=== PATIENT | female | born 1975 | race Caucasian/White ===

== ENCOUNTER 2021-06-05 10:29 | Outpatient (CLI) | payer MEDICARE, SELFPAY ==
--- NOTE | ~2021-06-05 | XR_ITS ---
XR chest 2V DATE: 06/05/2021 10:53 INDICATION: Shortness of breath TECHNIQUE: 2 views COMPARISON: None FINDINGS: Status post anterior surgical fusion at cervical-thoracic area. Normal heart size. No hilar or mediastinal enlargement. No pulmonary infiltrate or consolidation, pleural effusion or pulmonary vascular congestion or pneumo thorax. There is mild levoscoliosis of the thoracic spine. There is degenerative spurring of the thoracic spi ne. IMPRESSION: No active cardiopulmonary disease Reviewed, dictated and finalized at location A.
[2021-06-05 11:51] LABS: Alanine Aminotransferase 56 U/L (4-35); Albumin Level 4.3 g/dL (3.5-5.1); Alkaline Phosphatase 153 U/L (38-126); Anion Gap 2 mmol/L (8-16); Aspartate Amino Transferase 41 U/L (14-36); Bilirubin,Total 0.4 mg/dL (0.2-1.3); Blood Urea Nitrogen 8 mg/dL (7-17); Calcium 9.2 mg/dL (8.4-10.2); Carbon Dioxide 31 mmol/L (22-30); Chloride 102 mmol/L (98-107); Cholesterol 184 mg/dL (0-200); Estimated Glomerular Filt Rate > 60; Glucose 319 mg/dL (65-110); HDL Direct 47 mg/dL; Sodium 135 mmol/L (137-145); Triglycerides 216 mg/dL (<150)
[2021-06-05 11:52] LABS: Hemoglobin A1C 10.9 % (<5.7)
[2021-06-05 11:57] LABS: Basophils Absolute Auto 0.1 K/mm3 (0.0-0.1); Basophils Percent Auto 0.8 % (0.2-1.2); Eosinophils Absolute Auto 0.4 K/mm3 (0-0.3); Eosinophils Percent Auto 4.4 % (0-4.4); Hematocrit 41.7 % (37.0-47.0); Hemoglobin 13.8 g/dL (12.0-15.0); Immature Granulocyte Absolute 0.05 K/mm3 (0.00-0.031); Immature Granulocyte Percent A 0.6 % (0-0.5); Lymphocytes Absolute Auto 2.32 K/mm3 (0.9-3.2); Lymphocytes Percent Auto 28.2 % (18.3-44.2); Mean Corpuscular HGB Conc 33.1 g/dl (32-36); Mean Corpuscular Hemoglobin 28.9 pg (26-34); Mean Corpuscular Volume 87.2 fl (80-100); Mean Platelet Volume 10.7 fl (7.4-10.4); Monocytes Absolute Auto 0.5 K/mm3 (0.1-0.6); Monocytes Percent Auto 5.5 % (2.6-8.5); Neutrophils Percent Auto 60.5 % (45.5-73.1); Platelet Count Result 180 k/mm3 (150-375); Red Blood Count 4.78 M/mm3 (4.2-5.4); Red Cell Distribution Width 14.3 % (11.5-14.5); White Blood Count 8.2 K/mm3 (4.5-10.0)
[2021-06-05 12:02] LABS: LDL Cholesterol Direct 110 mg/dL
[2021-06-05 12:20] LABS: Thyroid Stimulating Hormone 0.862 uIU/mL (0.465-4.680)
[2021-06-05 12:23] LABS: Vitamin D 25 Hydroxy 27.8 ng/mL
== END 2021-06-05 10:30 | disposition home or self-care (01) ==
PROVIDERS: PCP Internal Medicine; Visit Provider Clinical Nurse Specialist
DX: R06.02 Shortness of breath (principal); E11.9 Type 2 diabetes mellitus without complications; R53.83 Other fatigue; E55.9 Vitamin D deficiency, unspecified
CPT/HCPCS: 36415; 71046; 80053; 80061; 82306; 83036; 84443; 85025

== ENCOUNTER 2021-08-27 10:08 | Emergency (ER) | payer MEDICARE, SELFPAY ==
[2021-08-27 10:26] VITALS: BP 125/77; PULSE 102; RESP 20; TEMP 36.6; O2SAT 100
[2021-08-27 10:38] VITALS: BP 108/70; PULSE 112; RESP 16; TEMP 37.2; O2SAT 100
--- NOTE | 2021-08-27 11:22 | ED.URI ---
HPI - URI/Sore Throat General Chief Complaint: Upper Respiratory Infection Stated Complaint: Congestion/ Sore Throat Time Seen by Provider: 08/27/21 11:30 Source: patient, RN notes reviewed and old records reviewed Mode of arrival: ambulatory Limitations: no limitations History of Present Illness HPI Narrative: 46 year old female who presents to [facility] with complaints of cough, headache, sore throat feels exhausted and has been feeling hot and cold for the past 3 days. Patient reports that she has noted some green tinged sputum and also has noted occasional wheezes with no acute dyspnea she continues to use tobacco daily but has decreased usage since having present symptoms. Patient reports that she has had COVID and flu vaccinations, She states that she has been taking Mucinex day and night for her symptoms. MD elicited complaint: cough, sore throat, rhinorrhea, nasal congestion and other (feeling hot and cold) Related Data Home Medications Medication Instructions Recorded Confirmed alendronate 70 mg tablet 70 mg PO WEEKLY 06/03/21 08/27/21 calcium carbonate 600 mg calcium 600 mg PO DAILY 06/03/21 08/27/21 (1,500 mg) tablet cholecalciferol (vitamin D3) 25 25 mcg PO DAILY 06/03/21 08/27/21 mcg (1,000 unit) capsule duloxetine 60 mg capsule,delayed 60 mg PO BID 06/03/21 08/27/21 release gabapentin 300 mg capsule 300 mg PO BID 06/03/21 08/27/21 hydrocodone 10 mg-acetaminophen 0.5 tablet PO QHS PRN tablet 06/03/21 08/27/21 325 mg tablet omeprazole 40 mg capsule,delayed 40 mg PO DAILY 06/03/21 08/27/21 release pregabalin 75 mg capsule 75 mg PO BID 06/03/21 08/27/21 Allergies Allergy/AdvReac Type Severity Reaction Status Date / Time No Known Allergies Allergy Verified 08/27/21 10:58 Review of Systems Review of Systems: CONSTITUTIONAL: No known fever, chills, or sweats.states feels hot and cold EYES: Denies visual changes, redness, or discharge. ENT: positive for rhinorrhea, congestion, sore throat, no otalgia. CARDIOVASCULAR: Denies chest pain, palpitations, or edema. RESPIRATORY:Positive for cough denies any acute dyspnea GASTROINTESTINAL: Denies abdominal pain, nausea, vomiting, or diarrhea. GENITOURINARY: Denies dysuria or hematuria. SKIN: Denies rash or itching. MUSCULOSKELETAL:Chronic neck and back pain, joint pain, generalized aching NEUROLOGIC: Positive for headache,no numbness, or weakness, states fatigue. PSYCHIATRIC: Positive for history of anxiety or depression. All systems reviewed & are unremarkable except as noted in HPI and below PMFSH Past Medical History Medical History Cervical disc disease Cirrhosis of liver Diabetes Osteopenia Parkinson disease Surgical History Surgical History H/O lumbar discectomy H/O: hysterectomy Family History Family History Father Diabetes mellitus Idiopathic pulmonary fibrosis Mother Depression Anxiety Parkinsons disease Grandparent Heart disease Parkinsons disease Diabetes mellitus Sibling Cerebrovascular accident Brother Social History Social History (Updated 08/28/21 @ 16:13 by Alaina Ledesma NP) Social History: Caffeine-4cups daily Smoking packs per day: 0.5 Smoking cigarettes per day: 10.0 Years smoked: 30 Smoking pack-years: 15.00 Smoking status: Current every day smoker Tobacco type: cigarettes Second hand tobacco smoke exposure: Yes Alcohol intake: unknown Substance use: current Substance use type: opiates Last use: pain control Living arrangements: with family Gender identity (if verbalized by the patient): Female Comments At time of signature, agree with nursing past medical, surgical, social and family history. There is no relevant family history pertinent to the presenting complaint Ex
== END 2021-08-27 11:50 | disposition home or self-care (01) ==
PROVIDERS: Emergency Provider Registered Nurse; PCP Internal Medicine
DX: J06.9 Acute upper respiratory infection, unspecified (principal); J40 Bronchitis, not specified as acute or chronic; Z20.822 Contact with and (suspected) exposure to COVID-19; F17.210 Nicotine dependence, cigarettes, uncomplicated; K74.60 Unspecified cirrhosis of liver; E11.9 Type 2 diabetes mellitus without complications; M81.0 Age-related osteoporosis without current pathological fracture; G20 Parkinson's disease
CPT/HCPCS: 87081; 87426; 87880; 99213; C9803; G0463

== ENCOUNTER 2021-10-01 10:00 | Outpatient (CLI) | payer MEDICARE, SELFPAY ==
[2021-10-01 11:22] LABS: Hemoglobin A1C 11.8 % (<5.7)
[2021-10-01 12:32] LABS: Folic Acid > 20.0 ng/mL (2.76->20)
[2021-10-01 12:42] LABS: Creatinine Urine 186.9 mg/dL
[2021-10-01 13:16] LABS: Microalbumin Urine Random 495.3 mg/L (0-16.7)
== END 2021-10-01 10:01 | disposition home or self-care (01) ==
PROVIDERS: PCP Internal Medicine; Visit Provider Internal Medicine
DX: E11.69 Type 2 diabetes mellitus with other specified complication (principal)
CPT/HCPCS: 36415; 82043; 82607; 82746; 83036

== ENCOUNTER 2021-10-21 10:39 | Outpatient (CLI) | payer MEDICARE, SELFPAY ==
--- NOTE | ~2021-10-21 | XR_ITS ---
EXAMINATION: XR chest 2V 10/21/2021 10:49 INDICATION: Dyspnea PROCEDURE: 2 view chest COMPARISON: 06/05/2021 FINDINGS: The lungs are clear. The cardiomediastinal silhouette is within normal limits. There are no pleural effusions. There is no pneumothorax suspected. IMPRESSION: 1: NO ACUTE CARDIOPULMONARY DISEASE. Reviewed, dictated and finalized at location B. E CARE CERTIFIED NURSING ASSISTANT
== END 2021-10-21 10:40 | disposition home or self-care (01) ==
LOC: ANHIMG 10:40
PROVIDERS: PCP Internal Medicine; Visit Provider Internal Medicine
DX: R06.00 Dyspnea, unspecified (principal)
CPT/HCPCS: 71046

== ENCOUNTER 2021-11-01 09:15 | Outpatient (CLI) | payer MEDICARE, SELFPAY ==
--- NOTE | ~2021-11-01 | NM_ITS ---
EXAMINATION: NM elisa stress w perfusion DATE: 11/01/2021 12:43 INDICATION: Dyspnea on exertion. TECHNIQUE: Rest images were obtained following intravenous administration of 9 mCi Tc99m tetrofosmin (Myoview). The patient was infused intravenously with Lexiscan (regadenoson). Then, 26 mCi Tc99m tetr ofosmin (Myoview) was administered intravenously, and stress images were obtained. Data was reconstru cted into short axis and horizontal and vertical long axis SPECT images. Gated SPECT images were also obtained. COMPARISON: None. FINDINGS: Increased activity below the diaphragm decreases sensitivity and specificity in the inferio r wall. There is no definite reversible or fixed perfusion abnormality to suggest ischemia or infarct ion. There is no segmental wall motion abnormality. Left ventricular ejection fraction measures 54% . IMPRESSION: 1. No definite ischemia or infarct. 2. Normal left ventricular ejection fraction measuring 54%. Reviewed, dictated and finalized at location A. ING ACTUARY
--- NOTE | 2021-11-01 11:28 | EST_ITS ---
Patient Info Name: Yahaira Carrera Age: 46 years : 1975 Gender: Female Ht: 67 in Wt: 193 lbs BSA: 2.06 m2 HR: 78 bpm BP: 131 / 84 mmHg Heart Rhythm: Sinus Rhythm Exam Date: 11/01/2021 11:34 AM Exam Location: [facility] Stress Patient Status: Outpatient Admit Date: 11/01/2021 Staff Ordering Physician: Yoni Darby DO Attending Provider: Yoni Darby DO Exercise Technologist: Sunni Jones CT Exercise Physician: Kwame Salazar DO Exam Type: CA stress elisa w NM Study Info Indications R06.00 - Dyspnea, unspecified A regadenoson stress test was performed. Summary 1. 1. Negative lexiscan stress test for ischemic ST changes by ECG crieria. 2. 2. Stable hemodynamics throughout the test. 3. 3. Nuclear scan to follow and will be reported separately. Please correlate with it. 4. 4. Patient informed of the above results. Protocol: Lexiscan Stress ECG Details Stage: REST Duration (min): 0 min : 47 sec HR (bpm): 79 SBP (mmHg): 131 DBP (mmHg): 84 Stage: REST Duration (min): 8 min : 0 sec HR (bpm): 79 SBP (mmHg): 131 DBP (mmHg): 84 Stage: STAGE 1 Duration (min): 1 min : 0 sec HR (bpm): 93 SBP (mmHg): 136 DBP (mmHg): 77 Stage: RECOVERY Duration (min): 1 min : 0 sec HR (bpm): 102 SBP (mmHg): 136 DBP (mmHg): 77 Stage: RECOVERY Duration (min): 2 min : 0 sec HR (bpm): 121 SBP (mmHg): 136 DBP (mmHg): 77 Stage: RECOVERY Duration (min): 2 min : 55 sec HR (bpm): 101 SBP (mmHg): 178 DBP (mmHg): 88 Rest HR: 79 bpm Peak HR: 121 bpm Rest Sys BP: 131 mmHg Peak Sys BP: 178 mmHg Max Pred HR: 174 bpm % Max Pred HR: 70 % Target HR: 148 bpm Max RPP: 21,538 bpm*mmHg Termination Reason: Completed protocol Cardiac Symptoms: Nausea/vomiting Total Time: 1 min : 0 sec Rest Bryant BP: 84 mmHg Peak Bryant BP: 88 mmHg Total Dose: 0.4 mg Resting ECG Sinus rhythm, borderline ST abnormality in anterolat/inf leads. Stress ECG No ST changes. Arrhythmias None. Report Signatures
== END 2021-11-01 09:16 | disposition home or self-care (01) ==
LOC: ANHCARD 09:20
PROVIDERS: PCP Internal Medicine; Visit Provider Internal Medicine
DX: R06.00 Dyspnea, unspecified (principal); E11.69 Type 2 diabetes mellitus with other specified complication
CPT/HCPCS: 78452; 93017; A9502; J2785

== ENCOUNTER 2021-11-06 10:08 | Outpatient (CLI) | payer MEDICARE, SELFPAY ==
[2021-11-06 11:48] LABS: Hemoglobin A1C 10.1 % (<5.7)
[2021-11-06 12:24] LABS: Folic Acid > 20.0 ng/mL (2.76->20)
[2021-11-06 17:10] LABS: Creatinine Urine 161.1 mg/dL
[2021-11-06 17:29] LABS: MALB Creatinine Ratio 169.1 mg/g (0-30); Microalbumin Urine Random 272.5 mg/L (0-16.7)
== END 2021-11-06 10:09 | disposition home or self-care (01) ==
PROVIDERS: PCP Internal Medicine; Visit Provider Clinical Nurse Specialist
DX: E11.69 Type 2 diabetes mellitus with other specified complication (principal)
CPT/HCPCS: 36415; 82043; 82607; 82746; 83036

== ENCOUNTER 2022-02-18 08:09 | Outpatient (CLI) | payer MEDICARE, SELFPAY ==
[2022-02-18 09:02] LABS: INR 0.9; Prothrombin Time 12.2 Seconds (11.1-14.7)
[2022-02-18 09:05] LABS: Alanine Aminotransferase 20 U/L (6-35); Albumin Level 4.4 g/dL (3.5-5.1); Alkaline Phosphatase 90 U/L (38-126); Anion Gap 5 mmol/L (8-16); Aspartate Amino Transferase 20 U/L (14-36); Bilirubin,Total 0.3 mg/dL (0.2-1.3); Blood Urea Nitrogen 15 mg/dL (7-17); Calcium 9.4 mg/dL (8.4-10.2); Carbon Dioxide 28 mmol/L (22-30); Chloride 106 mmol/L (98-107); Cholesterol 187 mg/dL (0-200); Estimated Glomerular Filt Rate > 60; Glucose 204 mg/dL (65-110); HDL Direct 49 mg/dL; Potassium 3.8 mmol/L (3.4-5.0); Sodium 139 mmol/L (137-145); Triglycerides 106 mg/dL (<150)
[2022-02-18 09:15] LABS: Hemoglobin A1C 8.9 % (<5.7)
[2022-02-18 09:16] LABS: Creatinine Urine 175.5 mg/dL
[2022-02-18 09:16] LABS: Basophils Absolute Auto 0.1 K/mm3 (0.0-0.1); Basophils Percent Auto 0.8 % (0.2-1.2); Eosinophils Absolute Auto 0.5 K/mm3 (0-0.3); Eosinophils Percent Auto 4.4 % (0-4.4); Hematocrit 41.8 % (37.0-47.0); Hemoglobin 14.2 g/dL (12.0-15.0); Immature Granulocyte Absolute 0.04 K/mm3 (0.00-0.031); Immature Granulocyte Percent A 0.4 % (0-0.5); LDL Cholesterol Direct 108 mg/dL; Lymphocytes Percent Auto 26.7 % (18.3-44.2); Mean Corpuscular Hemoglobin 29.3 pg (26-34); Mean Corpuscular Volume 86.2 fl (80-100); Mean Platelet Volume 10.6 fl (7.4-10.4); Monocytes Absolute Auto 0.6 K/mm3 (0.1-0.6); Monocytes Percent Auto 5.5 % (2.6-8.5); Neutrophils Absolute Auto 6.5 K/mm3 (1.3-6.7); Neutrophils Percent Auto 62.2 % (45.5-73.1); Platelet Count Result 303 k/mm3 (150-375); Red Blood Count 4.85 M/mm3 (4.2-5.4); Red Cell Distribution Width 14.3 % (11.5-14.5); White Blood Count 10.5 K/mm3 (4.5-10.0)
[2022-02-18 09:19] LABS: MALB Creatinine Ratio 51.8 mg/g (0-30); Microalbumin Urine Random 90.9 mg/L (0-16.7)
[2022-02-23 12:10] LABS: Alpha Fetoprotein Tumor Marker 4.2 ng/mL (<6.1)
== END 2022-02-18 08:10 | disposition home or self-care (01) ==
PROVIDERS: PCP Internal Medicine; Visit Provider Internal Medicine
DX: K74.60 Unspecified cirrhosis of liver (principal); E11.69 Type 2 diabetes mellitus with other specified complication
CPT/HCPCS: 36415; 80053; 80061; 82043; 82105; 83036; 85025; 85610

== ENCOUNTER 2022-05-19 09:21 | Outpatient (CLI) | payer MEDICARE, SELFPAY ==
[2022-05-19 10:02] LABS: Anion Gap 10 mmol/L (8-16); Blood Urea Nitrogen 10 mg/dL (7-17); Calcium 9.3 mg/dL (8.4-10.2); Carbon Dioxide 27 mmol/L (22-30); Chloride 104 mmol/L (98-107); Cholesterol 144 mg/dL (0-200); Estimated Glomerular Filt Rate > 60; Glucose 110 mg/dL (65-110); HDL Direct 35 mg/dL; Potassium 4.4 mmol/L (3.4-5.0); Sodium 141 mmol/L (137-145); Triglycerides 137 mg/dL (<150)
[2022-05-19 10:08] LABS: Hemoglobin A1C 6.2 % (<5.7)
[2022-05-19 10:13] LABS: LDL Cholesterol Direct 86 mg/dL
== END 2022-05-19 09:22 | disposition home or self-care (01) ==
PROVIDERS: PCP Internal Medicine; Visit Provider Internal Medicine
DX: E11.69 Type 2 diabetes mellitus with other specified complication (principal)
CPT/HCPCS: 36415; 80048; 80061; 83036

== ENCOUNTER 2022-05-29 08:47 | Outpatient (CLI) | payer MEDICARE, SELFPAY ==
--- NOTE | ~2022-05-29 | US_ITS ---
EXAMINATION: US carotid duplex BI DATE: 05/29/2022 09:15 INDICATION: Dizziness and giddiness TECHNIQUE: Grayscale, color Doppler, and pulsed Doppler images of the cervical carotid arteries were obtained. The degree of vessel stenosis is placed in one of the following categories: normal, <50%, 5 0-69%, >=70% but less than near-occlusion, near-occlusion, or total occlusion. Note that percent sten osis relative to normal distal artery lumen diameter is indirectly measured from velocity measurement s as described by Melecio, et al. Radiology 2003; 229:340-346. Notes: Normal: Peak systolic velocity <125 centimeters/sec and no plaque <50%. Peak systolic velocity <125 ( EDV <40; ICA/CCA PSV ratio <2.0; used these factors only a tandem lesions or low cardiac output or co ntralateral disease) 50-69 %: PSV 125-230 (EDV 40-100; ratio 2-4) >= 70% but less than near occlusion: PSV greater than 230 (EDV > 100; ratio> 4.0) Near Occlusion: PSV that is variable; markedly narrowed lumen Occlusion: Absent flow on color/spectral Doppler and no lumen on lancaster scale. COMPARISON: None. FINDINGS: RIGHT: The right common carotid artery (CCA) peak systolic velocity (PSV) is 98 cm/s. The right internal car otid artery (ICA) PSV is 90 cm/s. The right ICA end-diastolic velocity (EDV) is 37 cm/s. The right IC A/CCA PSV ratio is 0.9. The external carotid artery (ECA) PSV is 104 cm/s. There is antegrade flow in the right vertebral artery. LEFT: The left CCA PSV is 100 cm/s. The left ICA PSV is 76 cm/s. The left ICA EDV is 26 cm/s. The left ICA/ CCA PSV ratio is 0.8. The ECA PSV is 103 cm/s. There is antegrade flow in the left vertebral artery. IMPRESSION: 1. Less than 50% stenosis in the right internal carotid artery by sonographic criteria. 2. Less than 50% stenosis in the left internal carotid artery by sonographic criteria. Reviewed, dictated and finalized at location B. IMPRESSION: 1. Less than 50% stenosis in the right internal carotid artery by sonographic c indy. 2. Less than 50% stenosis in the left internal carotid artery by sonographic candice stone.
== END 2022-05-29 08:48 | disposition home or self-care (01) ==
PROVIDERS: PCP Internal Medicine; Visit Provider Clinical Nurse Specialist
DX: R42 Dizziness and giddiness (principal); I65.23 Occlusion and stenosis of bilateral carotid arteries
CPT/HCPCS: 93880

== ENCOUNTER 2022-07-31 09:48 | Outpatient (CLI) | payer MEDICARE, SELFPAY ==
--- NOTE | ~2022-07-31 | DEXA_ITS ---
Bone Density Report Name: BELKIS JIMENEZ Age: 47 Sex: Female Ethnicity: White Date of : 1975 Indication: postmenopausal; prior fracture; hysterectomy; Referring Provider: MADISON RICHARD Study: Bone densitometry was performed. Exam Date: July 31, 2022 Accession number: [id number] Bone Density: Region BMD T-score Z-score Classification AP Spine(L1, L2, L3) 1.234 2.0 2.5 Normal Femoral Neck (Left) 0.761 -0.8 -0.2 Normal Total Hip (Left) 1.062 1.0 1.4 Normal Femoral Neck (Right) 0.732 -1.1 -0.5 Osteopenia Total Hip (Right) 1.015 0.6 1.0 Normal Total Hip Mean 1.038 0.8 1.2 Normal World Health Organization criteria for BMD impression classify patients as: Normal (T-score at or above -1.0), Osteopenia (T-score between -1.0 and -2.5), or Osteoporosis (T-score at or below -2.5). 10-year Fracture Risk(1): Major Osteoporotic Fracture 6.0% Hip Fracture 0.6% Reported Risk Factors: [place] (), Neck BMD=0.732, BMI=31.8, previous fracture, smoking (1) FRAX(R) Version 3.08. Fracture probability calculated for an untreated patient. Fracture probability may be lower if the patient has received treatment. Clinical Information Provided by Patient: Has had a low trauma fracture Smokes Has used the following medications: Vitamin D, Calcium Has the following medical conditions: Hysterectomy Patient maximum height was 67 Menopause Age: 23 No regular weight bearing exercise Drinks caffeinated beverages Onset of menses at age 13 Number of children 2 Impression: The patient has low bone mass, based on the Right Femoral Neck T-score. The patient has an estimated ten-year risk of hip fracture of 0.6% and an estimated ten-year risk of major fracture of 6%, based on the WHO FRAX algorithm. The patient has risk factors, including: smoking, previous fracture. Discussion: BONE DENSITY IS LOW AT ONE OR MORE SKELETAL SITES. This patient's lowest T-score is low at one or more skeletal sites. It meets the World Health Organization's (WHO) criteria for ?low bone mass? (T-score between -1.0 and -2.5). The patient's 10-year risk of fracture as calculated by FRAX is less than the threshold where pharmacological therapy is recommended by the National Osteoporosis Foundation (NOF). However, all treatment decisions require clinical judgment and consideration of individual patient factors, including patient preferences, comorbidities, previous drug use, risk factors not captured in the FRAX model (e.g., frailty, falls, vitamin D deficiency, increased bone turnover, interval significant decline in bone density) and possible under or overestimation of fracture risk by FRAX. The patient should follow a healthful lifestyle (good nutrition with adequate calcium and vitamin D, and appropriate weight-bear
== END 2022-07-31 09:49 | disposition home or self-care (01) ==
LOC: ANHIMG 09:50
PROVIDERS: PCP Internal Medicine; Visit Provider Internal Medicine
DX: Z78.0 Asymptomatic menopausal state (principal); M85.851 Other specified disorders of bone density and structure, right thigh
CPT/HCPCS: 77080

== ENCOUNTER → 2022-08-26 10:12 | Outpatient (CLI) | payer MEDICARE, SELFPAY ==
--- NOTE | ~2022-08-26 | CT_ITS ---
CT Abdomen with contrast. History: Abdominal pain, pancreatic mass. Spiral CT of the abdomen was performed prior to and following the administration of intravenous contr ast. 100 cc of Omnipaque 350 was administered intravenously without complication. Dose reduction tech nique was used on this scan by utilizing automated exposure control and iterative reconstruction tech nique. The dose-length product (DLP) was 2657.29 mGy-cm. Findings: Scans through the lung bases demonstrate mild atelectatic change. The liver, spleen, pancreas, gallbladder, adrenal glands are within normal limits. Small nonobstructi ng renal stones are present, measuring up to approximately 2 mm in maximum diameter. Low-density 1.8 cm left adrenal nodule is consistent with adenoma. No evidence of aortic aneurysm. Single enlarged lymph node in the peripancreatic/orlando hepatis region, measuring 2.7 x 1.7 cm in size (series 8 image 60).. Visualized bowel loops are unremarkable. No ascites is seen. Impression: No pancreatic mass identified. Single enlarged [place] hepatis/peripancreatic lymph node measuring 2.7 x 1.7 cm, indeterminate. Consid er PET scan or short-term follow-up CT to reassess. Bilateral nephrolithiasis. Reviewed, dictated and finalized at location . SHOOTER Impression: No pancreatic mass identified. Single enlarged [place] hepatis/peripancreatic lymph node measuring 2.7 x 1.7 cm, indeterminate. Consider PET scan or short-term follow-up CT to reassess. Bilateral nephrolithiasis.
[2022-08-26 11:33] LABS: Estimated Glomerular Filt Rate > 60
== END ==
PROVIDERS: PCP Clinical Nurse Specialist; Visit Provider Clinical Nurse Specialist
DX: R19.00 Intra-abdominal and pelvic swelling, mass and lump, unspecified site (principal); K74.60 Unspecified cirrhosis of liver; K86.89 Other specified diseases of pancreas
CPT/HCPCS: 74170; Q9967

== ENCOUNTER 2022-08-26 12:01 | Outpatient (CLI) | payer MEDICARE, SELFPAY ==
[2022-08-26 12:33] LABS: Basophils Absolute Auto 0.1 K/mm3 (0.0-0.1); Basophils Percent Auto 0.7 % (0.2-1.2); Eosinophils Absolute Auto 0.5 K/mm3 (0-0.3); Eosinophils Percent Auto 4.9 % (0-4.4); Hematocrit 42.7 % (37.0-47.0); Hemoglobin 13.8 g/dL (12.0-15.0); Immature Granulocyte Absolute 0.03 K/mm3 (0.00-0.031); Immature Granulocyte Percent A 0.3 % (0-0.5); Lymphocytes Absolute Auto 3.16 K/mm3 (0.9-3.2); Lymphocytes Percent Auto 31.4 % (18.3-44.2); Mean Corpuscular HGB Conc 32.3 g/dl (32-36); Mean Corpuscular Hemoglobin 28.5 pg (26-34); Mean Platelet Volume 10.1 fl (7.4-10.4); Monocytes Absolute Auto 0.6 K/mm3 (0.1-0.6); Monocytes Percent Auto 6.3 % (2.6-8.5); Neutrophils Absolute Auto 5.7 K/mm3 (1.3-6.7); Neutrophils Percent Auto 56.4 % (45.5-73.1); Platelet Count Result 296 k/mm3 (150-375); Red Blood Count 4.85 M/mm3 (4.2-5.4); Red Cell Distribution Width 13.9 % (11.5-14.5); White Blood Count 10.1 K/mm3 (4.5-10.0)
[2022-08-26 12:47] LABS: Alanine Aminotransferase 27 U/L (6-35); Albumin Level 4.6 g/dL (3.5-5.1); Alkaline Phosphatase 100 U/L (38-126); Amylase 147 U/L (30-110); Anion Gap 6 mmol/L (8-16); Aspartate Amino Transferase 24 U/L (14-36); Bilirubin,Total 0.5 mg/dL (0.2-1.3); Blood Urea Nitrogen 14 mg/dL (7-17); Calcium 9.7 mg/dL (8.4-10.2); Carbon Dioxide 31 mmol/L (22-30); Chloride 104 mmol/L (98-107); Cholesterol 187 mg/dL (0-200); Estimated Glomerular Filt Rate > 60; Glucose 80 mg/dL (65-110); HDL Direct 44 mg/dL; Lipase 346 U/L (23-300); Potassium 4.3 mmol/L (3.4-5.0); Sodium 141 mmol/L (137-145); Triglycerides 195 mg/dL (<150)
[2022-08-26 12:58] LABS: LDL Cholesterol Direct 106 mg/dL
== END 2022-08-26 12:02 | disposition home or self-care (01) ==
PROVIDERS: PCP Clinical Nurse Specialist; Visit Provider Clinical Nurse Specialist
DX: R53.83 Other fatigue (principal); E11.69 Type 2 diabetes mellitus with other specified complication; K86.89 Other specified diseases of pancreas
CPT/HCPCS: 36415; 74170; 80053; 80061; 82150; 83690; 84443; 85025; Q9967

== ENCOUNTER 2022-09-22 10:55 | Outpatient (CLI) | payer MEDICARE, SELFPAY ==
--- NOTE | ~2022-09-22 | XR_ITS ---
Thoracic spine: Clinical Indication: Pain AP and lateral views were performed. Probable minimal anterior wedging deformity of T12. There is normal alignment of the vertebrae. The intervertebral disc spaces appear normal. Paravertebral soft tissues appear normal. Impression: Probable minimal anterior wedging deformity of T12. Reviewed, dictated and finalized at [facility]. PICU Impression: Probable minimal anterior wedging deformity of T12.
--- NOTE | ~2022-09-22 | XR_ITS ---
AP and oblique views of the left ribs, and PA and lateral chest radiographs Clinical History: Pain Findings: No rib fracture is seen. Osseous alignment is anatomic. Lungs are clear, without focal cons olidation or pleural effusion. Cardiomediastinal contour is within normal limits. Soft tissues are un remarkable. Impression: No rib fracture is seen. Clear lungs. Reviewed, dictated and finalized at location . GORY SPECIALIST Impression: No rib fracture is seen. Clear lungs.
== END 2022-09-22 10:56 ==
PROVIDERS: PCP Internal Medicine; Visit Provider Clinical Nurse Specialist
DX: R07.81 Pleurodynia (principal); M54.9 Dorsalgia, unspecified
CPT/HCPCS: 71046; 71100; 72072

== ENCOUNTER 2023-06-12 09:53 | Outpatient (CLI) | payer MEDICARE, SELFPAY ==
--- NOTE | ~2023-06-12 | US_ITS ---
EXAMINATION: US soft tissue head and neck DATE: 06/12/2023 10:05 INDICATION: Localized swelling, mass and lump, neck. TECHNIQUE: Multiple grayscale and Doppler ultrasound images of the head and neck were obtained. COMPARISON: None FINDINGS: In the left thyroid lobe, there is a 1.3 cm mixed cystic and solid, hypoechoic, wider than tall nodule with smooth margin without echogenic foci (TI-RADS TR3). There are normal sized lymph nod es in the neck. IMPRESSION: 1. Left thyroid nodule, likely not clinically significant. No follow-up is needed. Reviewed, dictated and finalized at location A. IMPRESSION: 1. Left thyroid nodule, likely not clinically significant. No follow-up is need ed.
== END 2023-06-12 09:54 ==
LOC: GOSHIMG 09:54
PROVIDERS: PCP Internal Medicine; Visit Provider Clinical Nurse Specialist
DX: R22.1 Localized swelling, mass and lump, neck (principal)
CPT/HCPCS: 76536

== ENCOUNTER 2023-06-24 10:07 | Outpatient (CLI) | payer MEDICARE, SELFPAY ==
--- NOTE | ~2023-06-24 | CT_ITS ---
EXAMINATION: CT soft tissue neck wo con DATE: 06/24/2023 10:32 INDICATION: Localized swelling, mass and lump, neck. TECHNIQUE: Computed tomography (CT) of the neck was performed without intravenous contrast. Automated exposure control and iterative reconstruction technique were employed. The dose-length product was 4 01.19 mGy-cm. COMPARISON: Ultrasound 06/12/2023 FINDINGS: The orbits are normal. A skin marker overlies left neck. There are no pathologically enlarg ed lymph nodes. There is a 10 mm nodule in left thyroid lobe, likely not clinically significant. The paranasal sinuses are clear. The mastoid air cells are normal. There are changes of anterior fusion p rocedure at C7-T1. There is moderate cervical spondylosis. IMPRESSION: 1. No lymphadenopathy. Reviewed, dictated and finalized at location E. IMPRESSION: 1. No lymphadenopathy.
== END 2023-06-24 10:08 ==
LOC: GOSHIMG 10:08
PROVIDERS: PCP Internal Medicine; Visit Provider Clinical Nurse Specialist
DX: R22.1 Localized swelling, mass and lump, neck (principal)
CPT/HCPCS: 70490

== ENCOUNTER 2023-07-18 18:36 | Emergency (ER) | payer MEDICARE, SELFPAY ==
[2023-07-18 18:41] VITALS: BP 126/87; PULSE 101; RESP 14; TEMP 36.2; O2SAT 100
--- NOTE | 2023-07-18 18:43 | ED.FEMALEGU ---
HPI - Female Genitourinary General Chief complaint: Urogenital-Female Stated complaint: Poss UTI Time Seen by Provider: 07/18/23 18:56 Source: patient and RN notes reviewed Mode of arrival: ambulatory Limitations: no limitations History of Present Illness HPI Narrative: 48-year-old female presents with concern for urinary tract infection. She reports started last night with left flank pain that has progressed and to suprapubic pressure, dysuria, urgency, frequency, left lower quadrant discomfort. She reports history of UTIs and kidney stones. She reports chills and nausea. MD elicited complaint: UTI Related Data Home Medications Medication Instructions Recorded Confirmed cholecalciferol (vitamin D3) 25 25 mcg PO DAILY 06/03/21 07/18/23 mcg (1,000 unit) capsule gabapentin 300 mg capsule 300 mg PO BID 06/03/21 07/18/23 hydrocodone 10 mg-acetaminophen 0.5 tablet PO QHS PRN Pain 06/03/21 07/18/23 325 mg tablet rifaximin 550 mg tablet (Xifaxan) 550 mg PO BID 02/18/22 07/18/23 ursodiol 300 mg capsule 300 mg PO BID 07/18/23 07/18/23 Allergies Allergy/AdvReac Type Severity Reaction Status Date / Time No Known Allergies Allergy Verified 07/18/23 18:53 Review of Systems Review of Systems: CONSTITUTIONAL: Denies malaise, sweats, or fever. Reports chills CARDIOVASCULAR: Denies chest pain, palpitations, or edema. RESPIRATORY: Denies cough or dyspnea. GASTROINTESTINAL: Denies abdominal pain, vomiting, diarrhea. Reports nausea GENITOURINARY: Reports dysuria, frequency, urgency, suprapubic pressure, left flank pain SKIN: Denies rash or itching. MUSCULOSKELETAL: Denies back pain or myalgia. All systems reviewed & are unremarkable except as noted in HPI and below PMFSH Past Medical History Medical History Cervical disc disease Cirrhosis of liver Diabetes BHATIA (nonalcoholic steatohepatitis) Osteopenia Parkinson disease Trigger finger Right hand 05/2022 Surgical History Surgical History H/O lumbar discectomy H/O: hysterectomy Family History Family History Father Diabetes mellitus Idiopathic pulmonary fibrosis Family history of liver disease Mother Depression Anxiety Parkinsons disease Grandparent Heart disease Parkinsons disease Diabetes mellitus Sibling Cerebrovascular accident Brother Atrial fibrillation H/O cardiac radiofrequency ablation Grandparent Diabetes mellitus Hypertension Social History Social History Social History: Caffeine-4cups daily Smoking packs per day: 0.25 Smoking cigarettes per day: 5.0 Years smoked: 30 Smoking pack-years: 7.50 Smoking status: Current every day smoker Tobacco type: cigarettes Second hand tobacco smoke exposure: Yes Alcohol intake: never Substance use: current Substance use type: marijuana Last use: pain control Lack of Transportation: No Lack of Food: Never True Current Housing: I Have Housing Concerned About Future Housing: No Difficulty Paying Gas/Electric Bills: No Difficulty Paying for Meds: No Currently Unemployed: No Education: High School Diploma/GED Difficulty w/ Childcare or Family Care: No Living arrangements: with family Gender identity (if verbalized by the patient): Female Comments At time of signature, agree with nursing past medical, surgical, social and family history. There is no relevant family history pertinent to the presenting complaint Exam Narrative: GENERAL: Well-appearing, well-nourished, and in no acute distress. HEAD: Normocephalic. EYES: PERRLA, conjunctivae clear. NECK: Supple. No lymphadenopathy CHEST: Clear to auscultation. No respiratory distress. HEART: Regular rate and rhythm. ABDOMEN: Soft, nontender up
== END 2023-07-18 19:05 | disposition home or self-care (01) ==
PROVIDERS: Emergency Provider Nurse Practitioner; PCP Internal Medicine
DX: R30.0 Dysuria (principal); R35.0 Frequency of micturition; R10.32 Left lower quadrant pain; R39.15 Urgency of urination; K74.60 Unspecified cirrhosis of liver; E11.9 Type 2 diabetes mellitus without complications; K75.81 Nonalcoholic steatohepatitis (NASH); M85.80 Other specified disorders of bone density and structure, unspecified site; G20.A1 Parkinson's disease without dyskinesia, without mention of fluctuations; M50.30 Other cervical disc degeneration, unspecified cervical region
CPT/HCPCS: 81003; 87086; 87088; 99213; G0463

== ENCOUNTER 2023-08-11 11:19 | Outpatient (CLI) | payer MEDICARE, SELFPAY ==
[2023-08-11 13:15] LABS: Anion Gap 8 mmol/L (8-16); Blood Urea Nitrogen 10 mg/dL (7-17); Calcium 9.6 mg/dL (8.4-10.2); Carbon Dioxide 30 mmol/L (22-30); Chloride 102 mmol/L (98-107); Estimated Glomerular Filt Rate > 60; Glucose 131 mg/dL (65-110); Magnesium 1.8 mg/dL (1.6-2.3); Potassium 4.7 mmol/L (3.4-5.0); Sodium 140 mmol/L (137-145)
== END 2023-08-11 11:20 | disposition home or self-care (01) ==
LOC: ANHGOSHLAB 11:20
PROVIDERS: PCP Internal Medicine; Visit Provider Internal Medicine
DX: E87.6 Hypokalemia (principal)
CPT/HCPCS: 36415; 80048; 83735

== ENCOUNTER 2023-10-14 10:48 | Emergency (ER) | payer MEDICARE, SELFPAY ==
[2023-10-14 10:53] VITALS: BP 129/74; PULSE 84; RESP 18; TEMP 36.1; O2SAT 100
--- NOTE | 2023-10-14 11:08 | ED.GENADULT ---
HPI - General Adult General Chief complaint: Upper Respiratory Infection Stated complaint: poss sinus infection Source: patient, RN notes reviewed and old records reviewed Mode of arrival: ambulatory Limitations: no limitations History of Present Illness HPI narrative: 40-year-old female presents to [facility] with complaints of sinus congestion, sinus pain, headache, myalgia, fatigue that started with the weekend. Patient states taking a Ibuprofen with no relief. patient denies fall off, shortness of breath, chest pain, dizziness, weakness. Related Data Home Medications Medication Instructions Recorded Confirmed cholecalciferol (vitamin D3) 25 25 mcg PO DAILY 06/03/21 10/14/23 mcg (1,000 unit) capsule gabapentin 300 mg capsule 300 mg PO BID 06/03/21 10/14/23 hydrocodone 10 mg-acetaminophen 0.5 tablet PO QHS PRN Pain 06/03/21 10/14/23 325 mg tablet rifaximin 550 mg tablet (Xifaxan) 550 mg PO BID 02/18/22 10/14/23 ursodiol 300 mg capsule 300 mg PO BID 07/18/23 10/14/23 prochlorperazine maleate 5 mg 5 mg PO Q8H PRN nausea 08/11/23 10/14/23 tablet (Compazine) Allergies Allergy/AdvReac Type Severity Reaction Status Date / Time No Known Allergies Allergy Verified 10/14/23 11:13 Review of Systems Constitutional: Constitutional: Reports no additional constitutional complaints, Reports body ache(s), Denies chills, Reports fatigue, Denies fever(s) and Reports headache(s) Eyes: Eyes: Reports no additional eye complaints and Denies blurry vision ENT: Reports system reviewed and no additional complaints, except as documented, Denies vertigo, Denies dizziness, Denies ear discharge, Reports otalgia, Denies facial pain, Denies headache(s), Reports nasal congestion, Reports nasal discharge, Reports post nasal drip, Reports sinus pain, Reports sinus pressure and Denies sore throat Cardiovascular: Cardiovascular: Reports no additional cardiovascular complaints, Denies chest pain, Denies chest pain at rest, Denies rapid heart rate and Denies dyspnea Respiratory: Respiratory: Reports no additional respiratory complaints, Denies chest congestion, Denies cough, Denies pain on inspiration, Denies pain with cough and Denies dyspnea Gastrointestinal: Gastrointestinal: Denies abdominal pain, Denies diarrhea, Denies nausea and Denies vomiting Integumentary/Breasts: Skin/Breast: Denies rash Neurologic: Reports system reviewed and no additional complaints, except as documented, Denies vertigo, Denies dizziness and Denies headache(s) Endocrine: Endocrine: Denies fatigue PMFSH Past Medical History Medical History Cervical disc disease Cirrhosis of liver Diabetes BHATIA (nonalcoholic steatohepatitis) Osteopenia Parkinson disease Trigger finger Right hand 05/2022 Surgical History Surgical History H/O lumbar discectomy H/O: hysterectomy Hx of appendectomy (~07/21/23) Family History Family History Father Diabetes mellitus Idiopathic pulmonary fibrosis Family history of liver disease Mother Depression Anxiety Parkinsons disease Grandparent Heart disease Parkinsons disease Diabetes mellitus Sibling Cerebrovascular accident Brother Atrial fibrillation H/O cardiac radiofrequency ablation Grandparent Diabetes mellitus Hypertension Social History Social History Social History: Caffeine-4cups daily Smoking packs per day: 0.25 Smoking cigarettes per day: 5.0 Years smoked: 30 Smoking pack-years: 7.50 Smoking status: Current every day smoker Tobacco type: cigarettes Second hand tobacco smoke exposure: Yes Alcohol intake: never Substance use: current Substance use type: marijuana Last use: pain control Lack of Transportation: No Lack
== END 2023-10-14 11:40 | disposition home or self-care (01) ==
PROVIDERS: Emergency Provider Registered Nurse; PCP Internal Medicine
DX: J01.90 Acute sinusitis, unspecified (principal); Z20.822 Contact with and (suspected) exposure to COVID-19; F17.210 Nicotine dependence, cigarettes, uncomplicated; F12.90 Cannabis use, unspecified, uncomplicated; K74.60 Unspecified cirrhosis of liver; E11.9 Type 2 diabetes mellitus without complications; K75.81 Nonalcoholic steatohepatitis (NASH); M85.80 Other specified disorders of bone density and structure, unspecified site; G20.A1 Parkinson's disease without dyskinesia, without mention of fluctuations
CPT/HCPCS: 87426; 87804; 99213; G0463

== ENCOUNTER 2023-12-14 14:35 | Outpatient (CLI) | payer MEDICARE, SELFPAY ==
--- NOTE | ~2023-12-14 | XR_ITS ---
EXAMINATION: XR lumbar spine min 4V DATE: 12/14/2023 15:02 INDICATION: Sciatica, left side. TECHNIQUE: 5 views of lumbar spine were obtained. COMPARISON: None. FINDINGS: There is 21 degrees dextroscoliosis of thoracolumbar spine. There is mild chronic height lo ss of L1 vertebral body on the left. There are changes of posterior fusion procedure from L4 to S1 wi th pedicle screws. There is moderately decreased disc height at L2-L3, mildly decreased disc height a t L3-L4, moderately decreased disc height at L4-L5, and mildly decreased disc height at L5-S1. There are disc calcifications at L4-L5. There is multilevel facet joint osteoarthritis IMPRESSION: 1. Moderate lumbar spondylosis. 2. Thoracolumbar dextroscoliosis. 3. Posterior fusion procedure from L4 to S1. Reviewed, dictated and finalized at location E.
== END 2023-12-14 14:36 | disposition home or self-care (01) ==
LOC: ANHIMG 14:36
PROVIDERS: PCP Internal Medicine; Visit Provider Internal Medicine
DX: M54.32 Sciatica, left side (principal); M47.896 Other spondylosis, lumbar region; Z98.1 Arthrodesis status
CPT/HCPCS: 72110

== ENCOUNTER 2024-03-06 12:56 | Emergency (ER) | payer MEDICARE, SELFPAY ==
--- NOTE | ~2024-03-06 | XR_ITS ---
EXAMINATION: XR hand RT min 3V DATE: 03/06/2024 13:27 INDICATION: Right hand pain. TECHNIQUE: 3 views of right hand were obtained. COMPARISON: None. FINDINGS: There is an oblique fracture of diaphysis of fourth metacarpal. The distal fracture fragmen t demonstrates 3 mm radial palmar displacement and 5 mm shortening. Internal fixation is seen with a longitudinal screw. Joint spaces are normal. IMPRESSION: 1. Oblique fracture of diaphysis of fourth metacarpal with internal fixation. Reviewed, dictated and finalized at location E.
[2024-03-06 13:05] VITALS: BP 139/82; PULSE 75; RESP 18; TEMP 36.5; O2SAT 100
--- NOTE | 2024-03-06 13:17 | ED.UPPEXIN ---
HPI - Extremity Injury (Upper) General Chief Complaint: Extremity Injury, Upper Stated Complaint: Finger Injury Time Seen by Provider: 03/06/24 13:17 Source: patient, RN notes reviewed and old records reviewed Mode of arrival: ambulatory Limitations: no limitations History of Present Illness HPI narrative: 48 year old female who presents to [facility] with complaints of reaching in her purse on Thursday and caught her right 5th finger on something and pulled her hand out. Patient reports she had surgery previously on her right 4th finger from fracture repair with internal fixation with screw on February 09. Patient reports that she has had right hand pain since occurrence to 5th finger and to site where she had surgery. Patient has special hand splint that she wears to her right hand. Patient reports that she has taken OTC medications for her discomfort and also her prescription pain medication from her surgery for the pain. MD complaint: injury to: right and hand Onset (ago): day(s) (5) Handedness: right Severity scale (1-10): 9 Treatments prior to arrival: NSAIDS, splint and other (Tylenol and prescription pain medication) Related Data Home Medications Medication Instructions Recorded Confirmed cholecalciferol (vitamin D3) 25 25 mcg PO DAILY 06/03/21 12/28/23 mcg (1,000 unit) capsule gabapentin 300 mg capsule 300 mg PO BID 06/03/21 12/28/23 hydrocodone 10 mg-acetaminophen 0.5 tablet PO QHS PRN Pain 06/03/21 12/28/23 325 mg tablet rifaximin 550 mg tablet (Xifaxan) 550 mg PO BID 02/18/22 12/28/23 ursodiol 300 mg capsule 300 mg PO BID 07/18/23 12/28/23 prochlorperazine maleate 5 mg 5 mg PO Q8H PRN nausea 08/11/23 12/28/23 tablet (Compazine) meloxicam 15 mg tablet mg 03/06/24 semaglutide 2 mg/dose (8 mg/3 mL) mg subcut 03/06/24 subcutaneous pen injector (Ozempic) Allergies Allergy/AdvReac Type Severity Reaction Status Date / Time No Known Allergies Allergy Verified 12/28/23 09:40 Review of Systems Review of Systems: CONSTITUTIONAL: Denies fever, chills, or sweats. EYES: Denies visual changes, redness, or discharge. ENT: Denies rhinorrhea, congestion, sore throat, or otalgia. CARDIOVASCULAR: Denies chest pain, palpitations, or edema. RESPIRATORY: Denies cough or dyspnea. GASTROINTESTINAL: Denies abdominal pain, nausea, vomiting, or diarrhea. GENITOURINARY: Denies dysuria or hematuria. SKIN: Denies rash or itching. MUSCULOSKELETAL: Denies back pain,Positive for right hand surgery to site of previous surgery 4th finger and to 5th finger , or myalgia. NEUROLOGIC: Denies headache, numbness, or weakness. PSYCHIATRIC: Positive for history of anxiety or depression. All systems reviewed & are unremarkable except as noted in HPI and below PMFSH Past Medical History Medical History Acquired deviated nasal septum Back Pain Cervical disc disease Cirrhosis of liver Diabetes Dyspnea on exertion GERD (gastroesophageal reflux disease) Headache History of fractured rib History of osteopenia Hoarseness Hypokalemia Laryngopharyngeal reflux Movement disorder Multiple fractures of ribs of left side with routine healing BHATIA (nonalcoholic steatohepatitis) Near syncope Neck swelling Osteopenia Parkinson disease Pulmonary nodules Refractory nausea and vomiting Renal calculi Rib pain on left side Shortness of Breath Throat pain Trigger finger Right hand 05/2022 Vitamin D deficiency Surgical History Surgical History H/O lumbar discectomy H/O: hysterectomy Hx of appendectomy (~07/21/23) Family History Family History Father Diabetes mellitus Idiopathic pulmonary fibrosis Family history of liver disease Mother Depression Anxiety Parkinsons disease Grandparent Heart disease Parkinsons disease Diabetes mellitus Sib
== END 2024-03-06 14:20 | disposition home or self-care (01) ==
PROVIDERS: Emergency Provider Registered Nurse; PCP Internal Medicine
DX: M79.641 Pain in right hand (principal); F17.210 Nicotine dependence, cigarettes, uncomplicated; F12.90 Cannabis use, unspecified, uncomplicated; K74.60 Unspecified cirrhosis of liver; E11.9 Type 2 diabetes mellitus without complications; K21.9 Gastro-esophageal reflux disease without esophagitis; K75.81 Nonalcoholic steatohepatitis (NASH); M85.80 Other specified disorders of bone density and structure, unspecified site; G20.A1 Parkinson's disease without dyskinesia, without mention of fluctuations; E55.9 Vitamin D deficiency, unspecified
CPT/HCPCS: 73130; 99213; G0463

== ENCOUNTER 2024-03-23 15:07 | Emergency (ER) | payer MEDICARE, SELFPAY ==
--- NOTE | ~2024-03-23 | XR_ITS ---
EXAM: XR ankle LT min 3V DATE: 03/23/2024 15:31 HISTORY: HYPEREXTENSION INJURY, POST PAIN,HX NEUROPATHY . COMPARISON: None available. FINDINGS: Normal mineralization. Multiple ossific fragments adjacent to the medial and lateral malle sariah likely representing old avulsion fractures and/or degenerative changes. No acute fracture or disl ocation. No lytic or blastic lesion. Moderate degenerative change at the tibiotalar joint and multipl e midfoot joints. Moderate Achilles and plantar enthesopathy. No erosion or periosteal change. Soft t issues within normal limits. IMPRESSION: No acute osseous finding in the left ankle. Reviewed, dictated and finalized at location K.
--- NOTE | 2024-03-23 15:20 | ED.LOWEXIN ---
HPI - Extremity Injury (Lower) General Chief Complaint: Extremity Injury, Lower Stated Complaint: Left Foot Injury Time Seen by Provider: 03/23/24 15:20 Source: patient Mode of arrival: ambulatory Limitations: no limitations History of Present Illness HPI Narrative: 49-year-old female presents with complaint of pain to left Achilles. Reports swelling to left ankle and foot. Patient states that she got tangled up in a blanket on March 12 and twisted left ankle. Does not have a lot pain due to her neuropathy. Called her primary care physician today to schedule appointment and was told she needed to get an x-ray. Range of motion and distal neurovascularly intact. All systems reviewed and negative except as noted above. Related Data Home Medications Medication Instructions Recorded Confirmed cholecalciferol (vitamin D3) 25 25 mcg PO DAILY 06/03/21 12/28/23 mcg (1,000 unit) capsule gabapentin 300 mg capsule 300 mg PO BID 06/03/21 12/28/23 hydrocodone 10 mg-acetaminophen 0.5 tablet PO QHS PRN Pain 06/03/21 12/28/23 325 mg tablet rifaximin 550 mg tablet (Xifaxan) 550 mg PO BID 02/18/22 12/28/23 ursodiol 300 mg capsule 300 mg PO BID 07/18/23 12/28/23 prochlorperazine maleate 5 mg 5 mg PO Q8H PRN nausea 08/11/23 12/28/23 tablet (Compazine) meloxicam 15 mg tablet mg 03/06/24 semaglutide 2 mg/dose (8 mg/3 mL) mg subcut 03/06/24 subcutaneous pen injector (Ozempic) linaclotide 72 mcg capsule mcg 03/23/24 (Linzess) rifaximin 550 mg tablet (Xifaxan) mg 03/23/24 semaglutide 2 mg/dose (8 mg/3 mL) mg subcut 03/23/24 subcutaneous pen injector (Ozempic) ursodiol 300 mg capsule mg 03/23/24 Allergies Allergy/AdvReac Type Severity Reaction Status Date / Time No Known Allergies Allergy Verified 12/28/23 09:40 Review of Systems Review of Systems: CONSTITUTIONAL: Denies fever, chills, or sweats. EYES: Denies visual changes, redness, or discharge. ENT: Denies rhinorrhea, congestion, sore throat, or otalgia. CARDIOVASCULAR: Denies chest pain, palpitations, or edema. RESPIRATORY: Denies cough or dyspnea. GASTROINTESTINAL: Denies abdominal pain, nausea, vomiting, or diarrhea. GENITOURINARY: Denies dysuria or hematuria. SKIN: Denies rash or itching. MUSCULOSKELETAL: reports pain and swelling to left ankle and foot NEUROLOGIC: Denies headache, numbness, or weakness. PSYCHIATRIC: Denies anxiety or depression. All other systems reviewed are negative, except as documented in HPI. [facility] Past Medical History Medical History Acquired deviated nasal septum Back Pain Cervical disc disease Cirrhosis of liver Diabetes Dyspnea on exertion GERD (gastroesophageal reflux disease) Headache History of fractured rib History of osteopenia Hoarseness Hypokalemia Laryngopharyngeal reflux Movement disorder Multiple fractures of ribs of left side with routine healing BHATIA (nonalcoholic steatohepatitis) Near syncope Neck swelling Osteopenia Parkinson disease Pulmonary nodules Refractory nausea and vomiting Renal calculi Rib pain on left side Shortness of Breath Throat pain Trigger finger Right hand 05/2022 Vitamin D deficiency Surgical History Surgical History H/O lumbar discectomy H/O: hysterectomy Hx of appendectomy (~07/21/23) Family History Family History Father Diabetes mellitus Idiopathic pulmonary fibrosis Family history of liver disease Mother Depression Anxiety Parkinsons disease Grandparent Heart disease Parkinsons disease Diabetes mellitus Sibling Cerebrovascular accident Brother Atrial fibrillation H/O cardiac radiofrequency ablation Grandparent Diabetes mellitus Hypertension Social History Social History Social History: Caffeine-
[2024-03-23 15:22] VITALS: BP 144/87; PULSE 78; RESP 20; TEMP 37.1; O2SAT 100
== END 2024-03-23 15:58 | disposition home or self-care (01) ==
PROVIDERS: Emergency Provider Nurse Practitioner Family; PCP Internal Medicine
DX: S93.402A Sprain of unspecified ligament of left ankle, initial encounter (principal); X58.XXXA Exposure to other specified factors, initial encounter; F17.210 Nicotine dependence, cigarettes, uncomplicated; F12.90 Cannabis use, unspecified, uncomplicated; K74.60 Unspecified cirrhosis of liver; E11.9 Type 2 diabetes mellitus without complications; K21.9 Gastro-esophageal reflux disease without esophagitis; M85.80 Other specified disorders of bone density and structure, unspecified site; K75.81 Nonalcoholic steatohepatitis (NASH); G20.A1 Parkinson's disease without dyskinesia, without mention of fluctuations; E55.9 Vitamin D deficiency, unspecified
CPT/HCPCS: 73610; 99213; G0463

== ENCOUNTER 2024-12-08 14:26 | Outpatient (CLI) | payer MEDICARE, SELFPAY ==
--- NOTE | ~2024-12-08 | XR_ITS ---
EXAM/ PROCEDURE: XR heel RT min 2V - 12/08/2024 14:28 CDT HISTORY: 49 years old Female with M79.89 - Other specified soft tissue disorders COMPARISON: None available TECHNIQUE: Two view(s) FINDINGS/ IMPRESSION: There are no fractures or dislocations.Joint space narrowing, subchondral sclerosis, subchondral cyst formation and osteophyte formation, compatible with moderate osteoarthritis. Plantar calcaneal spur and Achilles tendon enthesopathy. Reviewed, dictated and finalized at location A.
--- NOTE | ~2024-12-08 | XR_ITS ---
Right foot Technique: AP and lateral views were obtained. Clinical History: Soft tissue disorder Findings: Questionable nondisplaced fracture of the fifth proximal phalanx distally. No other fractur e or dislocation. Joint spaces are preserved without erosive or degenerative change. Plantar calcanea l spur present. Soft tissues are unremarkable. Impression: Questionable nondisplaced fracture fifth proximal phalanx. Correlate for point tenderness. Plantar calcaneal spur. Reviewed, dictated and finalized at location . Impression: Questionable nondisplaced fracture fifth proximal phalanx. Correlate for point tenderness. Plantar calcaneal spur.
== END 2024-12-08 14:27 | disposition home or self-care (01) ==
PROVIDERS: PCP Nurse Practitioner; Visit Provider Nurse Practitioner
DX: M79.89 Other specified soft tissue disorders (principal); M77.31 Calcaneal spur, right foot; M76.61 Achilles tendinitis, right leg
CPT/HCPCS: 73620; 73650

== ENCOUNTER 2025-06-23 09:10 | Outpatient (CLI) | payer MEDICARE, SELFPAY ==
--- NOTE | ~2025-06-23 | MR_ITS ---
EXAMINATION: MR lumbar spine wo con DATE: 06/23/2025 09:36 INDICATION: Anesthesia of skin TECHNIQUE: Magnetic resonance imaging (MRI) of the lumbar spine was performed without intravenous contrast. Sequences included sagittal T2-weighted FSE, sagittal T2-weighted FS FSE, sagittal T1-weighted FSE, and axial T2-weighted FSE. COMPARISON: None FINDINGS: 20 degrees thoracolumbar dextro scoliosis and 10 degrees lower lumbar levocurvature. There is straightening of the normal lumbar lordosis. Partial laminectomies at L4 and L5 with L4-S1 instrumented posterior spinal fusion with bilateral vertical adelaida and pedicle screw fixation. There is chronic mild left anterior wedging at T12 and L1. Schmorl's nodes along the superior endplates of L2 and L3. Severe disc height loss at L4-L5. Moderate disc height loss at T11- T12 and L5-S1. Mild left-sided predominant disc height loss at L1-L2 and L2-L3 and mild right-sided prominent disc height loss at L3-L4. Mild fibrofatty degenerative endplate changes along the anterior superior endplate of T12. Marrow signal is otherwise unremarkable. The conus medullaris terminates at L1- L2. There is normal signal in the caudal spinal cord. The following disc levels are specifically discussed: T12-L1: Disc is mildly bulging. There is are bilateral facet joint osteoarthritis. There is mild left neural foraminal stenosis. There is mild central canal stenosis. L1-L2: Disc is mildly bulging. There is mild right and moderate left facet joint osteoarthritis. There is mild right neural foraminal stenosis. There is mild central canal stenosis. L2-L3: Disc is bulging. There is moderate bilateral facet joint osteoarthritis. There is altered left neural foraminal stenosis. There is mild central canal stenosis. L3-L4: Disc is mildly bulging. There is hypertrophy of the ligamentum flavum. There is severe bilateral facet joint osteoarthritis. There is mild bilateral neural foraminal stenosis. There is mild central canal stenosis. L4-L5: Posterior endplate osteophytes along the margins of a central to left paracentral disc protrusion. There is both posterior decompression and bilateral posterior spinal fusion.. There is mild bilateral neural foraminal stenosis. There is no central canal stenosis. L5-S1: Disc is bulging with superimposed annular fissure and central disc extrusion with disc material extending up to 6 mm caudal to the level of the superior endplate of S1. Posterior decompression and bilateral posterior spinal fusion. There is moderate left and mild right neural foraminal stenosis. There is mild central canal stenosis with narrowing of the lateral recesses, mild on the left and moderate on the right. IMPRESSION: 1. Mild S-shaped scoliosis of the lumbar and lower thoracic spine with moderate lower thoracic and moderate to severe lower lumbar spondylosis. 2. And partial L4 and L5 laminectomies and L4-S1 instrumented posterior spinal fusion. Reviewed, dictated and finalized at location A.
== END 2025-06-23 09:11 | disposition home or self-care (01) ==
LOC: MICIMG 09:10
PROVIDERS: PCP Internal Medicine; Visit Provider Internal Medicine
DX: M41.86 Other forms of scoliosis, lumbar region (principal); M41.84 Other forms of scoliosis, thoracic region; M47.816 Spondylosis without myelopathy or radiculopathy, lumbar region; M96.1 Postlaminectomy syndrome, not elsewhere classified; Z98.1 Arthrodesis status; R20.0 Anesthesia of skin; R29.898 Other symptoms and signs involving the musculoskeletal system
CPT/HCPCS: 72148

== ENCOUNTER 2025-06-30 08:40 | Outpatient (CLI) | payer MEDICARE, SELFPAY ==
--- NOTE | ~2025-06-30 | CT_ITS ---
EXAMINATION: CT lumbar spine wo con COMPARISON: None HISTORY: lumbar radiculopathy TECHNIQUE: Axial images were obtained through the spine without IV contrast. Coronal, sagittal reconstruction images were obtained from the axial views. CT scan performed using dose optimization techniques including the following automated exposure control; adjustment of mA and/or kV; use of iterative reconstruction technique. Automatic exposure control was used to reduce radiation dose. Permanent radiation dose record is archived to PACS. FINDINGS: There is a dextroconvex scoliosis. Posterior laminectomy noted at L4 and L5.Bilateral pedicle screws and rods fixate S1, L5 and L4, the hardware is intact with no lucency around the screws, no acute fracture or subluxation is identified. Moderate to severe loss of disc at L4-5 and L5-S1 with bony fusion noted partially of the L4-5 disc space. Moderate loss of the remaining disc heights with moderate canal and foraminal stenosis. Soft tissues there is a calculus in the left kidney midpole the largest measuring 2 mm. Impression: Postsurgical and degenerative changes Reviewed, dictated and finalized at location P. Impression: Postsurgical and degenerative changes
== END 2025-06-30 08:41 | disposition home or self-care (01) ==
LOC: MICIMG 08:41
PROVIDERS: PCP Internal Medicine
DX: M96.1 Postlaminectomy syndrome, not elsewhere classified (principal); Z98.1 Arthrodesis status; R29.890 Loss of height; M48.061 Spinal stenosis, lumbar region without neurogenic claudication; N20.0 Calculus of kidney
CPT/HCPCS: 72131

== ENCOUNTER 2025-07-06 14:58 | Outpatient (CLI) | payer MEDICARE, SELFPAY ==
--- NOTE | ~2025-07-06 | MR_ITS ---
EXAMINATION: MR cervical spine wo con DATE: 07/06/2025 15:57 INDICATION: Cervical radiculopathy TECHNIQUE: Magnetic resonance imaging (MRI) of the cervical spine was performed without intravenous contrast. Sequences included sagittal T2-weighted FSE, sagittal T2-weighted FS FSE, sagittal T1-weighted FSE, axial MERGE, and axial T2-weighted FSE. COMPARISON: None FINDINGS: Patient status post anterior fusion of C7-T1. No gross hardware failure or loosening appreciated. Degenerative changes present throughout the remainder of the cervical spine involving disc spaces, uncovertebral joints and pedicles. Slight reversal of normal lordosis is present. No discrete medullary cord lesion or gross myelopathic changes present. Visualized portions of the posterior fossa demonstrate mild hyperintense T2 weighted signal change in the pontine portion of the brainstem. Level specific findings as follows: C2-3: Mild degenerative change C3-4: Small to moderate central disc protrusion and/or disc osteophyte complex with slight deformity of the spinal cord as seen on image 9 series 6 and 7; the AP diameter of the canal at this level is approximately 7.6 mm. Neural foramen are patent. C4-5: Moderate to large central protrusion and/or disc osteophyte complex resulting in more pronounced deformity of the ventral aspect of the spinal cord and mild to moderate spinal canal stenosis with the AP diameter of the canal measuring approximately 6 mm. C5-6: Moderate size central disc bulging/broad-based protrusion with mild deformity ventral aspect of the spinal cord. No spinal canal stenosis. The neural foramen are patent. C6-7: Moderate-sized central disc protrusion resulting in deformity of the ventral aspect of the spinal cord also present at this level with mild spinal canal stenosis. The neural foramina are patent. C7-T1: Surgical changes with no spinal canal stenosis appreciated. IMPRESSION: 1. Multilevel disc bulging and/or broad based protrusions resulting in varying degrees of spinal canal stenosis; the most pronounced is at level C4-5 where the AP diameter of the spinal canal is narrowed to approximately 6 mm. 2. Incidental note of hyperintense T2-weighted signal changes in the pontine portion of the brainstem of uncertain significance. Correlate with clinical presentation and exam for additional imaging if clinically appropriate. Reviewed, dictated and finalized at location A. NE BOSS IMPRESSION: 1. Multilevel disc bulging and/or broad based protrusions resulting in varying degrees of spinal canal stenosis; the most pronounced is at level C4-5 where th e AP diameter of the spinal canal is narrowed to approximately 6 mm. 2. Incidental note of hyperintense T2-weighted signal changes in the pontine po rtion of the brainstem of uncertain significance. Correlate with clinical prese ntation and exam for additional imaging if clinically appropriate.
== END 2025-07-06 14:59 | disposition home or self-care (01) ==
LOC: MICIMG 14:59
PROVIDERS: PCP Internal Medicine
DX: M54.12 Radiculopathy, cervical region (principal); M54.16 Radiculopathy, lumbar region; M50.20 Other cervical disc displacement, unspecified cervical region
CPT/HCPCS: 72141